=== PATIENT | male | born 1970 | race African-American/Black ===

== ENCOUNTER → 2016-09-14 | Outpatient (CLI) | payer OTHER ==
[~2016-09-14] MED LIST: TRAM50TA PO
[2016-09-14 14:30] LABS: AUTOMATED NEUTROPHIL # 3.7 TH/MM3 (1.8-7.7); BASOPHIL # 0.1 TH/MM3 (0-0.2); BASOPHIL % 0.9 % (0.0-2.0); EOSINOPHIL # 0.2 TH/MM3 (0-0.4); EOSINOPHIL % 2.6 % (0.0-4.0); HEMATOCRIT 40.3 % (39.0-51.0); HEMO FLAGS DIFF FINAL; LYMPH % 29.9 % (9.0-44.0); LYMPHOCYTE # 1.9 TH/MM3 (1.0-4.8); MEAN CELL VOLUME 91.5 FL (80.0-100.0); MEAN CORPUSCULAR HEMOGLOBIN 30.9 PG (27.0-34.0); MEAN CORPUSCULAR HGB CONC 33.8 % (32.0-36.0); MONO % 7.1 % (0.0-8.0); NEUT % 59.5 % (16.0-70.0); PLATELET COUNT 280 TH/MM3 (150-450); RED CELL DISTRIBUTION WIDTH 14.1 % (11.6-17.2); WHITE BLOOD COUNT 6.3 TH/MM3 (4.0-11.0)
[2016-09-14 14:54] LABS: BICARBONATE 28.7 MEQ/L (21.0-32.0); POTASSIUM 3.9 MEQ/L (3.5-5.1)
--- NOTE | 2016-09-15 17:03 | EKG ---
Date Performed: 09/14/2016 Time Performed: 13:27:16 PTAGE: 45 years EKG: Sinus rhythm NONSPECIFIC T-WAVE ABNORMALITY ABNORMAL ECG Compared to prior tracing no significant change DOCTOR: Kelton Meneses Interpretating Date/Time 09/15/2016 17:01:30
== END ==
LOC: CPRE 13:11
PROVIDERS: ATTEND Orthopaedic Surgery Orthopaedic Surgery of the Spine
DX: Z01.812 Encounter for preprocedural laboratory examination (principal); Z01.810 Encounter for preprocedural cardiovascular examination; M51.26 Other intervertebral disc displacement, lumbar region; M51.36 Other intervertebral disc degeneration, lumbar region; R94.31 Abnormal electrocardiogram [ECG] [EKG]
CPT/HCPCS: 36415; 80048; 85025; 93005

== ENCOUNTER → 2016-09-20 | Day surgery (SDC) | payer OTHER ==
[~2016-09-20] VITALS: Ht 190.5 cm; Wt 105.7 kg
[~2016-09-20] MED LIST changes: +ACETAMINOPHEN 1000 MG/100 ML VIAL IV ONE; +ACETAMINOPHEN/HYDROcodone 325 MG/7.5 MG TAB PO PRN; +ARTIFICIAL TEARS OPTH OINT 3.5 APPLIC/3.5 GM TUBO ONE; +BUPIVACAINE/EPINEPHRINE 0.5% PF 10 ML VIAL INFIL ONE; +BUPIVACAINE/EPINEPHRINE 0.5% PF 30 ML VIAL ONE; +CHLORHEXIDINE GLUCONATE 2 % 1 PACK (2 CLOTHS) TOPICAL PRN; +CHLORHEXIDINE GLUCONATE 4% SOLN 120 ML BTL TOPICAL SCH; +DO NOT ADM ANY ANTICOAGULANT DRUGS PRN; +FAMOTIDINE 20 MG/2 ML VIAL ONE; +GENTAMICIN SULFATE 80 MG/2 ML VIAL ONE; +INSULIN HUMAN REGULAR 1,000 UNITS/10 ML VIAL SQ PRN; +LACTATED RINGER'S 1000 ML INJ 1,000 ML IV ONE; +LACTATED RINGER'S 1000 ML IV PRN; +METOPROLOL TARTRATE 25 MG TAB PO PRN; +MIDAZOLAM HCL 2 MG/2 ML VIAL ONE; +NEOSTIGMINE 3 MG/3 ML SYR IV ONE; +ONDANSETRON HCL 4 MG/2 ML VIAL IV PUSH ONE; +PHENYLEPH/NS 1000 MCG/10 ML SYR IV ONE; +POVIDONE IODINE 5% (ANTISEPSIS KIT) 4 APPLICATIONS EACH NARE PRN; +PROPOFOL 200 MG/20 ML AMP IV ONE; +SODIUM CHLORID 0.9% 500 ML IV PRN; +ceFAZolin 1,000 MG/NS 100 ML IV SCH; +ceFAZolin INJ 1,000 MG VIAL IV ONE; +ceFAZolin INJ 1,000 MG VIAL ONE; +ePHEDrine/NS 25 MG/5 ML SYR IV ONE; +fentaNYL CITRATE 250 MCG/5 ML AMP ONE
[2016-09-20 12:00] VITALS: BP 130/84; PULSE 60; RESP 20; TEMP 98.1; O2SAT 97
--- NOTE | 2016-09-20 16:10 | RADRPT ---
EXAM DATE/TIME: 09/20/2016 14:36 [place] COMPARISON: No previous studies available for comparison. INDICATIONS : Lower back pain. MEDICAL HISTORY : None. SURGICAL HISTORY : None. ENCOUNTER: Initial ACUITY: 1 day PAIN SCORE: Non-responsive. LOCATION: Bilateral lower back. FINDINGS: 2 magnified C. arm spot views are lateral projections of the lumbar spine. A dorsal skin retractor is seen. Metallic probe is noted projecting towards the L5-S1 disc space. There is disc space narrowing at this level. CONCLUSION: Limited images as detailed above. Nick Stallworth Jr., MD on September 20, 2016 at 16:03 Board Certified Radiologist. This report was verified electronically.
[2016-09-20 17:00] VITALS: BP 146/64; PULSE 72; RESP 20; TEMP 97.6; O2SAT 100
--- NOTE | 2016-09-21 09:17 | MP ---
cc: GASTON HENNING,GERRY Barksdale M.D. DATE OF SURGERY: 09/20/2016 PREOPERATIVE DIAGNOSIS 1. L5-S1 herniated nucleus pulposus. 2. L5-S1 degenerative disc disease and osteoarthritis. 3. Right greater than left lumbar radiculitis. POSTOPERATIVE DIAGNOSIS 1. L5-S1 herniated nucleus pulposus. 2. L5-S1 degenerative disc disease and osteoarthritis. 3. Right greater than left lumbar radiculitis. PROCEDURE L5-S1 bilateral hemilaminectomy, foraminotomy, partial facetectomy, decompression of nerve root; L5-S1 discectomy. SURGEON Elpidio Huff MD JOURNALISM INTERN Olimpia Edward PA-C SPECIMEN None. ESTIMATED BLOOD LOSS Less than 10 cc. COMPLICATIONS None. ANESTHESIA General. DRAINS None. CONDITION Stable. PLAN OF ACTIVITY Per orders. DETAILS OF PROCEDURE My graduate assistant KAYLA Main was present for the entire surgical case. She was medically necessary for the entire case because of the complexity of the case and to facilitate the performance of the procedure. The MIXER SLAGMAN at the back table did not have the skill set for this case to manipulate the instruments, e.g., multiple different soft tissue retractors and nerve root retractors. The patient was brought into the operating room and had satisfactory general endotracheal anesthesia by Dr. Mauricio Marion of the department of anesthesia. The patient was carefully transferred onto the [facility] spinal frame. All pressure points were well-padded. The lumbosacral spine was prepped and draped in the usual sterile manner. Localizing x-ray was used to confirm the L5-S1 interspace. 20 cc of 0.5% Marcaine with epinephrine was used to infiltrate the operative site to provide postoperative hemostasis and also analgesia. A small midline incision made over L5-S1. Dissection continued through skin and subcutaneous tissue. The paraspinal musculature was gently dissected bilaterally at L5-S1. Bilateral hemilaminectomy was performed. Dissection was carried to L5-S1 interspace. The nerve root was gently retracted medially from the right side. A 15 blade was used to incise the annulus. This was all done under fluoroscopic guidance. The patient was found to have moderate size central right-sided herniated nucleus pulses. Discectomy was performed without difficulty. The patient was found to have very satisfactory decompression of nerve roots with no evidence of any cerebrospinal fluid leaks. The wound was irrigated with copious amounts of sterile saline. The wound itself was dry. The wound was closed in routine layers. The fascia was closed wit #2 Tycron suture, subcutaneous multiple layers with 2-0 Vicryl and skin approximated with running subcuticular 3-0 Vicryl suture. Dermabond was placed over the incision. A sterile dressing was applied. The patient tolerated the procedure well and arrived in the recovery room in stable and satisfactory condition. MD TATI Sullivan/BT /3:29 PM /9:34 AM
== END | disposition home or self-care (01) ==
LOC: HSDC 11:33
PROVIDERS: ATTEND Orthopaedic Surgery Orthopaedic Surgery of the Spine
DX: M51.17 Intervertebral disc disorders with radiculopathy, lumbosacral region (principal)
CPT/HCPCS: 00630; 63030; 72020; 76000; J0131; J0690; J1580; J2250; J2370; J2405; J2710; J3010; J7120